=== PATIENT | male | born 1945 | race Caucasian/White ===

== ENCOUNTER → 2019-05-17 | Outpatient (CLI) | payer MEDICARE ==
[2019-05-17 12:35] LABS: BASOPHILS % (AUTO) 0.6 %; EOSINOPHILS # (AUTO) 0.1 10^3/uL (0.0-0.7); HGB - HEMOGLOBIN 14.3 g/dL (14.0-18.0); LYMPHOCYTES # (AUTO) 2.9 10^3/uL (1.5-3.5); MEAN CORPUSCULAR HEMOGLOBIN 30.8 pg (27.0-31.0); MEAN CORPUSCULAR VOLUME 96.1 fL (80.0-94.0); MEAN PLATELET VOLUME 9.6 fL (7.4-11.4); MONOCYTES # (AUTO) 0.7 10^3/uL (0.0-1.0); MONOCYTES % (AUTO) 10.1 %; PLT - PLATELET COUNT 242 10^3/uL (130-450); RED BLOOD COUNT 4.65 10^6/uL (4.70-6.10); RED CELL DISTRIBUTION WIDTH 13.4 % (12.0-15.0); WHITE BLOOD COUNT 6.7 x10^3/uL (4.8-10.8)
[2019-05-17 13:04] LABS: ALBUMIN 4.3 g/dL (3.2-5.5); ALBUMIN/GLOBULIN RATIO 1.2 (1.0-2.2); ALKALINE PHOSPHATASE 53 IU/L (42-121); ALT ALANINE AMINOTRANSFERASE 23 IU/L (10-60); AST ASPARTATE AMINOTRANSFERASE 28 IU/L (10-42); BILIRUBIN,TOTAL 0.4 mg/dL (0.2-1.0); BUN - BLOOD UREA NITROGEN 22 mg/dL (6-20); CALCIUM 9.3 mg/dL (8.5-10.3); CARBON DIOXIDE - CO2 26 mmol/L (21-32); CHLORIDE 107 mmol/L (101-111); CHOLESTEROL 197 mg/dL; CREATININE 0.9 mg/dL (0.6-1.2); GFR - MDRD 82 (>89); GLUCOSE 97 mg/dL (70-100); HDL CHOLESTEROL 33 mg/dL; LDL CHOLESTEROL,CALCULATED 144 mg/dL; LDL/HDL RATIO 4.4 (<3.6); SODIUM 141 mmol/L (135-145); TOTAL PROTEIN 7.9 g/dL (6.7-8.2); VLDL CHOLESTEROL 20 mg/dL
== END ==
LOC: LAB.WCP 08:00
PROVIDERS: ATTEND Family Medicine
DX: E78.5 Hyperlipidemia, unspecified (principal)
CPT/HCPCS: 36415; 80053; 80061; 83721; 85025

== ENCOUNTER 2019-05-31 08:00 | Outpatient (CLI) | payer MEDICARE | END 2019-05-31 08:01 | disposition home or self-care (01) | LOC: LAB.WCP 08:00 | PROVIDERS: ATTEND Family Medicine | DX: Z53.9 Procedure and treatment not carried out, unspecified reason (principal) ==

== ENCOUNTER 2019-11-03 11:22 | Emergency (ER) | payer MEDICARE ==
[2019-11-03] MEDS ORDERED: BUFFERED LIDOCAINE 10 ML SYRINGE SUBQ STA (12:20)
[2019-11-03] MEDS ORDERED: TETANUS/DIPHTHERIA/PERTUSSIS 0.5 ML SYRINGE IM ONE (12:20)
--- NOTE | 2019-11-03 12:32 | ED Physician Documentation ---
PD HPI UPPER EXT INJURY - Stated complaint Stated Complaint: RT FINGER LAC - Chief complaint Chief Complaint: Laceration - History obtained from History obtained from: Patient (Right-handed gentleman with unknown tetanus status was pushing down on the garbage at home and cut his right middle finger on a can lid. Happened about an hour ago.) Review of Systems Constitutional: denies: Fever, Chills Cardiac: reports: Reviewed and negative Respiratory: reports: Reviewed and negative PD PAST MEDICAL HISTORY - Past Medical History Past Medical History: Yes Cardiovascular: None Respiratory: None Neuro: None Endocrine/Autoimmune: None GI: None : None HEENT: None Psych: None Musculoskeletal: Osteoarthritis Derm: None - Past Surgical History Past Surgical History: Yes General: Colonoscopy Ortho: Hip replacement HEENT: Cataracts - Present Medications Home Medications: Ambulatory Orders Medication Instructions Recorded Confirmed Acetaminophen [Tylenol] 650 mg PO DAILY PRN 10/14/15 02/08/16 Oxycodone HCl/Acetaminophen 1 each PO Q6HR PRN #10 tablet 02/08/16 [Percocet 5-325 mg Tablet] - Allergies Allergies/Adverse Reactions: Allergies Allergy/AdvReac Type Severity Reaction Status Date / Time No Known Drug Allergies Allergy Verified 11/03/19 11:30 - Social History Does the pt smoke?: No Smoking Status: Never smoker Does the pt drink ETOH?: Yes Does the pt have substance abuse?: No - Immunizations Immunizations are current?: No Immunizations: TDAP >10years/unknown - POLST Patient has POLST: No PD ED PE NORMAL - Vitals Vital signs reviewed: Yes - General General: Alert and oriented X 3, No acute distress - Extremities Extremities: Other (On the pulp of the right index finger there is a 1.5 cm laceration without distal neurovascular compromise or nailbed involvement) - Neuro Neuro: Alert and oriented X 3, Normal speech Results - Vitals Vitals: Vital Signs - 24 hr 11/03/19 11:30 Temperature 36.7 C Heart Rate 87 Respiratory 14 Rate Blood Pressure 148/92 H O2 Saturation 95 Oxygen O2 Source Room air Procedures - Laceration (location) R 3rd finger Length in cm: 1.5 Wound type: Linear, Into subcut fat Neurovascular status: Sensory intact, Motor intact, Vascular intact Anesthesia: Lidocaine 1%, With bicarb Wound Preparation: Irrigated copiously NS Skin layer closure: Nylon, Interrupted, Size #-0 - enter number (5-0), Sutures - enter # (7) Other: Tetanus booster given Complexity: Simple Departure - Departure Disposition: 01 Home, Self Care Clinical Impression: Laceration Condition: Good Record reviewed to determine appropriate education?: Yes Instructions: ED Laceration Hand Comments: Come back for any signs of infection which would include: Redness, swelling, drainage, increased pain, or fevers. You can wash it soap and water. Keep it covered and moist with bacitracin ointment which is available over the counter; avoid neosporin. Follow-up with your physician in 14 days for suture removal.
[2019-11-03 13:04] VITALS: BP 147/89
== END 2019-11-03 13:09 | disposition home or self-care (01) ==
LOC: ED 11:22
DX: S61.212A Laceration without foreign body of right middle finger without damage to nail, initial encounter (principal); W26.8XXA Contact with other sharp object(s), not elsewhere classified, initial encounter; Y93.89 Activity, other specified; Y92.009 Unspecified place in unspecified non-institutional (private) residence as the place of occurrence of the external cause; Z23 Encounter for immunization
CPT/HCPCS: 12001; 90471

== ENCOUNTER 2020-09-03 07:19 | Outpatient (CLI) | payer MEDICARE ==
[2020-09-03 12:11] LABS: ALBUMIN 4.4 g/dL (3.2-5.5); ALBUMIN/GLOBULIN RATIO 1.3 (1.0-2.2); ALKALINE PHOSPHATASE 61 IU/L (42-121); ALT ALANINE AMINOTRANSFERASE 25 IU/L (10-60); AST ASPARTATE AMINOTRANSFERASE 30 IU/L (10-42); BILIRUBIN,TOTAL 0.8 mg/dL (0.2-1.0); BUN - BLOOD UREA NITROGEN 24 mg/dL (6-20); CALCIUM 9.3 mg/dL (8.5-10.3); CARBON DIOXIDE - CO2 27 mmol/L (21-32); CHLORIDE 102 mmol/L (101-111); CHOL/HDL RATIO 5.5 (<5.0); CHOLESTEROL 203 mg/dL; CREATININE 0.9 mg/dL (0.6-1.2); CRP - C-REACTIVE PROTEIN 1.9 mg/dL (0-1.0); GLUCOSE 96 mg/dL (70-100); HDL CHOLESTEROL 37 mg/dL; LDL CHOLESTEROL,CALCULATED 138 mg/dL; LDL/HDL RATIO 3.7 (<3.6); SODIUM 138 mmol/L (135-145); TOTAL PROTEIN 7.9 g/dL (6.7-8.2); URIC ACID 5.9 mg/dL (2.6-7.2); VLDL CHOLESTEROL 28 mg/dL
[2020-09-03 12:15] LABS: BASOPHILS % (AUTO) 0.4 %; EOSINOPHILS # (AUTO) 0.1 10^3/uL (0.0-0.7); HGB - HEMOGLOBIN 15.4 g/dL (14.0-18.0); LYMPHOCYTES # (AUTO) 3.2 10^3/uL (1.5-3.5); LYMPHOCYTES % (AUTO) 30.6 %; MEAN CORPUSCULAR HEMOGLOBIN 31.7 pg (27.0-31.0); MEAN CORPUSCULAR HGB CONC 32.6 g/dL (32.0-36.0); MEAN CORPUSCULAR VOLUME 97.1 fL (80.0-94.0); MEAN PLATELET VOLUME 9.5 fL (7.4-11.4); MONOCYTES # (AUTO) 0.9 10^3/uL (0.0-1.0); MONOCYTES % (AUTO) 8.7 %; NEUTROPHILS # (AUTO) 6.1 10^3/uL (1.5-6.6); NEUTROPHILS % (AUTO) 58.6 %; PLT - PLATELET COUNT 247 10^3/uL (130-450); RED BLOOD COUNT 4.86 10^6/uL (4.70-6.10); RED CELL DISTRIBUTION WIDTH 13.6 % (12.0-15.0); WHITE BLOOD COUNT 10.3 x10^3/uL (4.8-10.8)
[2020-09-03 14:11] LABS: RHEUMATOID FACTOR NEGATIVE (Negative)
== END 2020-09-03 07:20 | disposition home or self-care (01) ==
LOC: LAB.WCP 07:19
PROVIDERS: ATTEND Family Medicine
DX: E78.5 Hyperlipidemia, unspecified (principal); R03.0 Elevated blood-pressure reading, without diagnosis of hypertension; N52.9 Male erectile dysfunction, unspecified; M79.661 Pain in right lower leg; N20.0 Calculus of kidney; M06.4 Inflammatory polyarthropathy
CPT/HCPCS: 36415; 80053; 80061; 83721; 84443; 84550; 85025; 85651; 86140; 86430

== ENCOUNTER 2021-10-20 08:00 | Outpatient (CLI) | payer MEDICARE ==
[2021-10-20 13:52] LABS: ALBUMIN 4.5 g/dL (3.2-5.5); ALBUMIN/GLOBULIN RATIO 1.2 (1.0-2.2); ALKALINE PHOSPHATASE 61 IU/L (42-121); ALT ALANINE AMINOTRANSFERASE 22 IU/L (10-60); AST ASPARTATE AMINOTRANSFERASE 22 IU/L (10-42); BILIRUBIN,TOTAL 0.6 mg/dL (0.2-1.0); BUN - BLOOD UREA NITROGEN 31 mg/dL (6-20); CALCIUM 9.4 mg/dL (8.5-10.3); CARBON DIOXIDE - CO2 27 mmol/L (21-32); CHLORIDE 104 mmol/L (101-111); CHOL/HDL RATIO 5.8 (<5.0); CHOLESTEROL 216 mg/dL; CREATININE 0.9 mg/dL (0.6-1.2); GFR - MDRD 82 (>89); GLUCOSE 98 mg/dL (70-100); HDL CHOLESTEROL 37 mg/dL; LDL CHOLESTEROL,CALCULATED 147 mg/dL; POTASSIUM 4.6 mmol/L (3.5-5.0); SODIUM 141 mmol/L (135-145); TOTAL PROTEIN 8.2 g/dL (6.7-8.2); TRIGLYCERIDES 159 mg/dL; VLDL CHOLESTEROL 32 mg/dL
[2021-10-20 14:36] LABS: THYROID STIMULATING HORMONE 1.63 uIU/mL (0.34-5.60)
== END 2021-10-20 23:59 ==
LOC: LAB.WCP 08:00
PROVIDERS: ATTEND Internal Medicine
DX: I10 Essential (primary) hypertension (principal); E78.5 Hyperlipidemia, unspecified
CPT/HCPCS: 36415; 80053; 80061; 83721; 84443

== ENCOUNTER 2021-12-06 08:00 | Outpatient (CLI) | payer MEDICARE ==
[2021-12-06 14:24] LABS: FECAL OCCULT BLOOD (FIT) NEGATIVE (NEGATIVE)
== END 2021-12-06 23:59 | disposition home or self-care (01) ==
LOC: LAB.S 08:00
PROVIDERS: ATTEND Internal Medicine
DX: Z12.11 Encounter for screening for malignant neoplasm of colon (principal)
CPT/HCPCS: 82274

== ENCOUNTER 2022-09-09 12:44 | Outpatient (CLI) | payer MEDICARE | END 2022-09-09 12:45 | disposition EMS.NT | LOC: EMS 12:44 | DX: R42 Dizziness and giddiness (principal) ==

== ENCOUNTER 2022-09-12 08:49 | Outpatient (CLI) | payer MEDICARE ==
[2022-09-12 12:37] LABS: BASOPHILS # (AUTO) 0.1 10^3/uL (0.0-0.1); BASOPHILS % (AUTO) 0.6 %; EOSINOPHILS # (AUTO) 0.1 10^3/uL (0.0-0.7); EOSINOPHILS % (AUTO) 1.3 %; HCT - HEMATOCRIT 45.5 % (42.0-52.0); HGB - HEMOGLOBIN 14.6 g/dL (14.0-18.0); LYMPHOCYTES # (AUTO) 2.7 10^3/uL (1.5-3.5); LYMPHOCYTES % (AUTO) 34.7 %; MEAN CORPUSCULAR HEMOGLOBIN 30.5 pg (27.0-31.0); MEAN CORPUSCULAR HGB CONC 32.1 g/dL (32.0-36.0); MEAN CORPUSCULAR VOLUME 95.2 fL (80.0-94.0); MEAN PLATELET VOLUME 9.7 fL (7.4-11.4); MONOCYTES # (AUTO) 0.8 10^3/uL (0.0-1.0); NEUTROPHILS # (AUTO) 4.1 10^3/uL (1.5-6.6); PLT - PLATELET COUNT 244 10^3/uL (130-450); RED BLOOD COUNT 4.78 10^6/uL (4.70-6.10); RED CELL DISTRIBUTION WIDTH 13.4 % (12.0-15.0); WHITE BLOOD COUNT 7.8 x10^3/uL (4.8-10.8)
[2022-09-12 12:58] LABS: ALBUMIN 4.4 g/dL (3.2-5.5); ALBUMIN/GLOBULIN RATIO 1.3 (1.0-2.2); ALKALINE PHOSPHATASE 53 IU/L (42-121); ALT ALANINE AMINOTRANSFERASE 25 IU/L (10-60); AST ASPARTATE AMINOTRANSFERASE 25 IU/L (10-42); BILIRUBIN,TOTAL 0.5 mg/dL (0.2-1.0); BUN - BLOOD UREA NITROGEN 24 mg/dL (6-20); CALCIUM 9.5 mg/dL (8.5-10.3); CARBON DIOXIDE - CO2 27 mmol/L (21-32); CHLORIDE 106 mmol/L (101-111); CHOL/HDL RATIO 3.9 (<5.0); CHOLESTEROL 131 mg/dL; GFR - MDRD 72 (>89); GLUCOSE 94 mg/dL (70-100); HDL CHOLESTEROL 34 mg/dL; LDL CHOLESTEROL,CALCULATED 74 mg/dL; LDL/HDL RATIO 2.2 (<3.6); POTASSIUM 4.6 mmol/L (3.5-5.0); SODIUM 140 mmol/L (135-145); TOTAL PROTEIN 7.9 g/dL (6.7-8.2); TRIGLYCERIDES 113 mg/dL; VLDL CHOLESTEROL 23 mg/dL
== END 2022-09-12 08:50 | disposition home or self-care (01) ==
LOC: LAB.N 08:49
PROVIDERS: ATTEND Physician Assistant
DX: E78.5 Hyperlipidemia, unspecified (principal); R42 Dizziness and giddiness
CPT/HCPCS: 36415; 80053; 80061; 83721; 85025

== ENCOUNTER 2022-09-12 12:01 | Outpatient (CLI) | payer MEDICARE ==
--- NOTE | 2022-09-12 13:49 | CT Report ---
PROCEDURE: HEAD WO INDICATIONS: CONFUSION TECHNIQUE: Noncontrast 4.5 mm thick angled axial sections acquired from the foramen magnum to the vertex. For r adiation dose reduction, the following was used: automated exposure control, adjustment of mA and/or kV according to patient size. COMPARISON: None. FINDINGS: Image quality: There is streak artifact seen through the skull base. CSF spaces: Basal cisterns are patent. No extra-axial fluid collections. Ventricles are normal in size and shape. Brain: No midline shift. No intracranial masses or hemorrhage. Connelly-white matter interface is norm al. Skull and face: Calvarium and visualized facial bones are intact, without suspicious lesions. Sinuses: Visualized sinuses and mastoids are clear. IMPRESSION: Normal noncontrast head CT for age, without a cause of confusion identified. Reviewed by: Erick Art MD on 09/12/2022 12:47 PM DEON Approved by: Erick Art MD on 09/12/2022 12:47 PM AKBHAVANI Station ID: [id number]
== END 2022-09-12 12:02 | disposition home or self-care (01) ==
LOC: DI 12:01
PROVIDERS: ATTEND Physician Assistant
DX: R41.0 Disorientation, unspecified (principal); R42 Dizziness and giddiness; E78.5 Hyperlipidemia, unspecified
CPT/HCPCS: 36415; 80053; 80061; 83721; 85025

== ENCOUNTER 2022-10-25 11:34 | Emergency (ER) | payer MEDICARE ==
[2022-10-25 11:49] VITALS: BP 171/92
[2022-10-25] MEDS ORDERED: LIDOCAINE-EPINEPH-TETRACAINE 3 ML SYRINGE TOP STA (11:59)
--- NOTE | 2022-10-25 12:06 | ED Physician Documentation ---
History of Present Illness - Stated complaint Stated Complaint: HEAD INJURY/OBJECT VS FACE - Chief complaint Chief Complaint: Laceration - History obtained from History obtained from: Patient - History of Present Illness Timing: Today Pain level max: 3 Pain level now: 3 - Additonal information Additional information: Patient is a 77-year-old male who presents to the emergency department after being struck in the face accidentally by a piece of plywood causing a laceration at the left eye. Tetanus up-to-date. No headache. No vision changes. No neck or back pain. No loss of consciousness. Nothing makes it better or worse. Review of Systems Constitutional: denies: Fever, Chills Throat: denies: Sore throat GI: denies: Vomiting, Diarrhea Skin: denies: Rash Musculoskeletal: denies: Neck pain, Back pain Neurologic: denies: Confused, Headache, LOC PD PAST MEDICAL HISTORY - Past Medical History Cardiovascular: None Respiratory: None Neuro: None Endocrine/Autoimmune: None GI: None : None HEENT: None Psych: None Musculoskeletal: Osteoarthritis Derm: None - Past Surgical History Past Surgical History: Yes General: Colonoscopy Ortho: Hip replacement HEENT: Cataracts - Present Medications Home Medications: Ambulatory Orders Medication Instructions Recorded Confirmed Losartan Potassium 25 mg PO DAILY PM 10/25/22 10/25/22 Rosuvastatin Calcium [Crestor] 10 mg PO DAILY PM 10/25/22 10/25/22 - Allergies Allergies/Adverse Reactions: Allergies Allergy/AdvReac Type Severity Reaction Status Date / Time acetaminophen [From Vicodin] Allergy Unknown Verified 10/25/22 11:50 hydrocodone [From Vicodin] Allergy Unknown Verified 10/25/22 11:50 - Social History Does the pt smoke?: No Smoking Status: Never smoker Does the pt drink ETOH?: Yes Does the pt have substance abuse?: No - Immunizations Immunizations are current?: No Immunizations: TDAP >10years/unknown - POLST Patient has POLST: No PD ED PE NORMAL - Vitals Vital signs reviewed: Yes - General General: Alert and oriented X 3, No acute distress - HEENT HEENT: PERRL, EOMI (Laceration repair with Dermabond. Tolerated well. No indication for CT scan of the head, neck or face. No bony tenderness over the neck. No scalp hematomas or palpable skull fractures. GCS 15. Patient counseled regarding signs and symptoms for which I believe and urgent re- evaluation would be ), Moist mucous membranes, Pharynx benign, Dentition benign - Neck Neck: Supple, no meningeal sign, No bony TTP - Respiratory Respiratory: No respiratory distress - Derm Derm: Warm and dry - Neuro Neuro: Alert and oriented X 3 - Psych Psych: Normal mood, Normal affect - Free text exam Free text exam: Laceration just lateral to the left eye, approximately 3 cm in length. Well approximated. No active bleeding Results - Vitals Vitals: Vital Signs - 24 hr 10/25/22 11:45 Temperature 36.7 C Heart Rate 100 Respiratory 16 Rate Blood Pressure 171/92 H O2 Saturation 98 Oxygen O2 Source Room air Procedures - Laceration (location) Left periorbital Length in cm: 3 Wound type: Linear, Superficial Neurovascular status: Sensory intact, Motor intact, Vascular intact Anesthesia: LET Wound preparation: Irrigated copiously NS, Wound explored, To the base Skin layer closure: Dermabond Other: Patient tolerated well, No complications, Neurovascular intact, Tetanus UTD PD MEDICAL DECISION MAKING - ED course Complexity details: reviewed results, re-evaluated patient, considered differential, d/w patient ED course: Laceration repair with Dermabond. Tolerated well. No indication for CT scan of the head, neck or face. No bony tenderness over the neck. No scalp hematomas or palpable skull fractures. GCS 15. Patient counseled regarding signs and symptoms for which I believe and urgent re-evaluation would be necessary. Patient with good understanding of and agreement to plan and is comfortable going home at this time This document was made in part using voice recognition software. While efforts are made to proofread this document, sound alike and grammatical errors may occur. Departure - Departure Disposition: 01 Home, Self Care Clinical Impression: Facial laceration Qualifiers: Encounter type: initial encounter Qualified Code(s): S01.81XA - Laceration without foreign body of other part of head, initial encounter Condition: Good Instructions: ED Laceration Facial Skin Glue Follow-Up: your,doctor as needed [Other] Comments: Please leave the glue in place. Do not apply ointment as this may dissolve the glue. Please follow-up with your doctor for further care. Return if you worsen. Discharge Date/Time: 10/25/22 12:33
== END 2022-10-25 12:33 | disposition home or self-care (01) ==
LOC: ED 11:34
DX: S01.112A Laceration without foreign body of left eyelid and periocular area, initial encounter (principal); W22.8XXA Striking against or struck by other objects, initial encounter
CPT/HCPCS: 12013; 99281

== ENCOUNTER 2022-12-01 08:00 | Outpatient (CLI) | payer MEDICARE ==
[2022-12-01 18:37] LABS: BILIRUBIN,URINE NEGATIVE (NEGATIVE); GLUCOSE, URINE (UA) NEGATIVE (NEGATIVE); KETONES,URINE (UA) NEGATIVE (NEGATIVE); LEUKOCYTE ESTERASE, URINE NEGATIVE (NEGATIVE); NITRITE,URINE NEGATIVE (NEGATIVE); OCCULT BLOOD,URINE LARGE (NEGATIVE); PROTEIN,URINE NEGATIVE (NEGATIVE); UROBILINOGEN,URINE 0.2 (NORMAL) E.U./dL (NORMAL)
[2022-12-01 18:42] LABS: CLARITY,URINE HAZY (CLEAR)
[2022-12-01 18:59] LABS: BACTERIA,URINE None Seen /HPF (None Seen); RBC,URINE TNTC /HPF (0-5); SQUAMOUS EPITHELIAL CELL,UR NONE SEEN (<= Few); WBC,URINE 0-3 /HPF (0-3)
== END 2022-12-01 23:59 | disposition home or self-care (01) ==
LOC: LAB.WCP 08:00
PROVIDERS: ATTEND Physician Assistant
DX: R31.0 Gross hematuria (principal); R82.998 Other abnormal findings in urine
CPT/HCPCS: 81001; 87086

== ENCOUNTER 2022-12-07 09:19 | Outpatient (CLI) | payer MEDICARE ==
--- NOTE | 2022-12-07 15:18 | CT Report ---
PROCEDURE: ABDOMEN/PELVIS WO INDICATIONS: GROSS HEMATURIA TECHNIQUE: Noncontrast 5 mm thick sections acquired from the diaphragms to the symphysis. 5 mm coronal and sagi ttal reformats were then performed. For radiation dose reduction, the following was used: automated exposure control, adjustment of mA and/or kV according to patient size. COMPARISON: CT IVP dated 04/01/2016. FINDINGS: Image quality: Excellent. ABDOMEN: Lung bases: Lung bases are clear. Heart size is normal. Solid organs: Liver and spleen are normal in size. Gallbladder is unremarkable. Pancreas is normal in contours. No adrenal nodules. 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 There is now moderate right hydronephrosis. Th e right ureter proximally is distended and is of mildly increased density. The length of abnormally d ilated ureter measures approximately 3.3 cm. It is filled with this mildly high density material, whi ch may potentially represent clot, or potentially a ureteral mass. More inferiorly, the ureter has a normal caliber until it enters into the bladder. The left kidney and ureter are unremarkable without stones or hydronephrosis. Peritoneum and bowel: Unenhanced bowel loops demonstrate normal wall thickness and caliber. Extensi ve sigmoid diverticulosis and prominent diffuse diverticulosis without evidence of diverticulitis. No free fluid or air. Nodes and vessels: No retroperitoneal or mesenteric adenopathy by size criteria. Aorta and inferior vena cava are normal in caliber. Miscellaneous: Small fat-containing periumbilical hernia. PELVIS: Genitourinary: Bladder wall thickness is normal. Miscellaneous: No inguinal hernias or adenopathy. Bones: No suspicious bony lesions. No vertebral body compression fractures. Total left hip arthropl asty. IMPRESSION: 1. Moderate right hydronephrosis has developed. The superior aspect of the right ureter, measuring ap proximately 3.3 cm, is distended, and contains relatively high density. This may be distention by jt t or may potentially represent the presence of a ureteral carcinoma. 2. Extensive diverticulosis without evidence of diverticulitis. Comment: CT IVP may be helpful. Patient may benefit from urological consultation, and may require ret rograde pyelography. Reviewed by: Josh Benavides MD on 12/07/2022 3:17 PM PST Approved by: Jsoh Benavides MD on 12/07/2022 3:17 PM PST Station ID: [id number]
== END 2022-12-07 09:20 | disposition home or self-care (01) ==
LOC: DI 09:19
PROVIDERS: ATTEND Family Medicine
DX: N13.30 Unspecified hydronephrosis (principal); K57.30 Diverticulosis of large intestine without perforation or abscess without bleeding

== ENCOUNTER 2023-03-04 00:59 | Emergency (ER) | payer MEDICARE ==
--- OUTSIDE RECORDS SUMMARY | 2023-03-04 01:08 | EXTERNAL MEDICAL SUMMARY RPT | Continuity of Care Document ---
:1945 Author Organization [facility] Address [address] [place] [address] Phone Allergies No information. Encounters No information. Functional Status No information. Immunizations No information. Medications No information. Problems date description facility 2023-01-16 10:23 Unspecified hydronephrosis [facility] 2023-01-16 10:23 Gross hematuria [facility] 2023-01-16 10:23 Abnormal radiologic findings on [facility] imaging of renal 2023-01-16 10:24 Unspecified hydronephrosis [facility] 2023-01-16 10:24 [facility] 2023-01-16 10:24 Abnormal radiologic findings on [facility] imaging of renal Procedures No information. Results/Labs test date author facility value unit interpret ation Result panel 1 (unknown) (no (unknown) (unknown) (no value) (units (unk nown) date) unknown) (unknown) (no (unknown) (unknown) 01/16/23 (units (unkno wn) date) unknown) (unknown) (no (unknown) (unknown) [address] [place] [address] (units (unknown) date) unknown) (unknown) (no (unknown) (unknown) 2.3 cm (). (units (unknown) date) Findings represent unknown) malignancy until proven otherwise. No (unknown) (no (unknown) (unknown) 2.9 x 2.3 cm (units (u nknown) date) (). unknown) (unknown) (no (unknown) (unknown) 2.9 x (units (unkno wn) date) unknown) (unknown) (no (unknown) (unknown) Abdominal wall: (units (unknown) date) No ventral unknown) hernias. (unknown) (no (unknown) (unknown) Accession Number: (units (unknown) date) [id number] unknown) (unknown) (no (unknown) (unknown) Age/Sex: 77 / M (units (unknown) date) Date of Service: unknown) (unknown) (no (unknown) (unknown) [place], [place] (units ( unknown) date) [id number] unknown) (unknown) (no (unknown) (unknown) Ankylosis (units (unkn own) date) unknown) (unknown) (no (unknown) (unknown) Approved by: Luca (units (unknown) date) Raheem Emmanuel on unknown) 01/16/2023 at 15:25 (unknown) (no (unknown) (unknown) Bones: No (units (unkn own) date) suspicious bony unknown) lesions. No vertebral body compression fractures. (unknown) (no (unknown) (unknown) COMPARISON: None. (units (unknown) date) unknown) (unknown) (no (unknown) (unknown) CT Scan Report (units (unknown) date) unknown) (unknown) (no (unknown) (unknown) : 1945 (units (unknown) date) Acct:[id number] unknown) (unknown) (no (unknown) (unknown) Dictated by: Luca (units (unknown) date) Raheem Emmanuel on unknown) 01/16/2023 at 15:19 (unknown) (no (unknown) (unknown) FINDINGS: (units (unkn own) date) unknown) (unknown) (no (unknown) (unknown) IMPRESSION: (units (un known) date) unknown) (unknown) (no (unknown) (unknown) INDICATIONS: (units (u nknown) date) Gross hematuria unknown) (unknown) (no (unknown) (unknown) Ill-defined (units (unk nown) date) filling defect unknown) within the proximal right ureter/extrarenal pelvis on (unknown) (no (unknown) (unknown) Image quality: (units (unknown) date) Excellent. unknown) (unknown) (no (unknown) (unknown) [facility] (units (unknown) date) unknown) (unknown) (no (unknown) (unknown) Loc: CT (units (unkno wn) date) unknown) (unknown) (no (unknown) (unknown) Lung bases: Lung (units (unknown) date) bases are clear. unknown) Heart size is normal. (unknown) (no (unknown) (unknown) [id number] (units (unk nown) date) unknown) (unknown) (no (unknown) (unknown) Nodes and (units (unkn own) date) vessels: No unknown) retroperitoneal or mesenteric adenopathy by size (unknown) (no (unknown) (unknown) Optional 5 mm (units ( unknown) date) thick noncontrast unknown) images acquired from the diaphragm to the (unknown) (no (unknown) (unknown) Ordering (units (unkno wn) date) Provider: unknown) Rona Handy P.A-C (unknown) (no (unknown) (unknown) Other solid (units (un known) date) organs: Liver is unknown) normal in size and enhancement. Gallbladder is (unknown) (no (unknown) (unknown) PROCEDURE: CT IVP (units (unknown) date) A/P W/WO unknown) (unknown) (no (unknown) (unknown) Patient: (units (unkno wn) date) Fabio Grant unknown) MR#: (unknown) (no (unknown) (unknown) Pelvis: No (units (unk nown) date) pathologic free unknown) pelvic fluid. No inguinal hernias or adenopathy. (unknown) (no (unknown) (unknown) Peritoneum and (units (unknown) date) bowel: Bowel loops unknown) demonstrate normal wall thickness and (unknown) (no (unknown) (unknown) Procedure: CT IVP (units (unknown) date) A/P W/WO unknown) (unknown) (no (unknown) (unknown) Signed (units (unkno wn) date) unknown) (unknown) (no (unknown) (unknown) Spleen is (units (unkn own) date) unknown) (unknown) (no (unknown) (unknown) TECHNIQUE: (units (unk nown) date) unknown) (unknown) (no (unknown) (unknown) Urinary system: (units (unknown) date) Ill-defined unknown) filling defect within the proximal right (unknown) (no (unknown) (unknown) acquired from (units ( unknown) date) unknown) (unknown) (no (unknown) (unknown) and inferior vena (units (unknown) date) cava are normal in unknown) size. (unknown) (no (unknown) (unknown) and/or (units (unkno wn) date) unknown) (unknown) (no (unknown) (unknown) appreciable (units (un known) date) contrast excretion unknown) of the right kidney. This measures approximately (unknown) (no (unknown) (unknown) approximately (units ( unknown) date) unknown) (unknown) (no (unknown) (unknown) caliber. No (units (un known) date) unknown) (unknown) (no (unknown) (unknown) coronal and (units (un known) date) unknown) (unknown) (no (unknown) (unknown) criteria. Aorta (units (unknown) date) unknown) (unknown) (no (unknown) (unknown) evidence (units (unkno wn) date) unknown) (unknown) (no (unknown) (unknown) free fluid or (units ( unknown) date) air. Colonic unknown) diverticulosis without evidence of diverticulitis. (unknown) (no (unknown) (unknown) kV according to (units (unknown) date) patient size. unknown) (unknown) (no (unknown) (unknown) metastatic (units (unk nown) date) disease. unknown) (unknown) (no (unknown) (unknown) nephrogram, (units (un known) date) unknown) (unknown) (no (unknown) (unknown) normal in size (units (unknown) date) and enhancement. unknown) No adrenal nodules. (unknown) (no (unknown) (unknown) of the sacroiliac (units (unknown) date) joints unknown) (unknown) (no (unknown) (unknown) pelvis on the (units ( unknown) date) right, resulting unknown) in moderate upstream hydroureter and delayed (unknown) (no (unknown) (unknown) pubis. After the (units (unknown) date) administration of unknown) intravenous contrast, 5 mm thick images (unknown) (no (unknown) (unknown) radiation dose (units (unknown) date) unknown) (unknown) (no (unknown) (unknown) reduction, the (units (unknown) date) following was unknown) used: automated exposure control, adjustment of mA (unknown) (no (unknown) (unknown) right, resulting (units (unknown) date) in moderate unknown) upstream hydroureter and delayed nephrogram, (unknown) (no (unknown) (unknown) sagittal (units (unkno wn) date) reformats were unknown) then performed of the kidneys and ureters. For (unknown) (no (unknown) (unknown) symphysis (units (unkn own) date) unknown) (unknown) (no (unknown) (unknown) the diaphragm to (units (unknown) date) the symphysis unknown) pubis after a 10-minute delay. 2 mm thick (unknown) (no (unknown) (unknown) the (units (unkno wn) date) unknown) (unknown) (no (unknown) (unknown) unremarkable . (units (unknown) date) Biliary system is unknown) non dilated. Pancreas enhances normally. (unknown) (no (unknown) (unknown) ureter/extrarenal (units (unknown) date) unknown) (unknown) (no (unknown) (unknown) without (units (unkno wn) date) appreciable unknown) contrast excretion of the right kidney. This measures (unknown) (no (unknown) (unknown) without (units (unkno wn) date) unknown) Result panel 2 (unknown) (no date) (unknown) (unknown) 1.55 mg/dl (unkn own) (unknown) (no date) (unknown) (unknown) 45 ml/min (unkn own) (unknown) (no date) (unknown) (unknown) 45 ml/min (unkn own) Social History No information. Vital Signs No information.
--- NOTE | 2023-03-04 01:15 | ED Physician Documentation ---
PD HPI MALE - Stated complaint Stated Complaint: MALE - Chief complaint Chief Complaint: Abd Pain - History obtained from History obtained from: Patient - Additional information Additional information: HPI from patient. Patient complains of urinary frequency, urgency, hematuria since 10 PM. He feels the urge to urinate yet only very small amounts are produced when he tries to urinate. Patient underwent right kidney biopsy yesterday with cystoscopy. He does not know the results of biopsy yet. Review of Systems Constitutional: denies: Fever, Chills, Sweats GI: denies: Abdominal Pain (suprapubic fullness as if bladder is full but no abdominal pain per se), Nausea, Vomiting : reports: Dysuria, Frequency, Unable to Void, Hematuria PD PAST MEDICAL HISTORY - Past Medical History Cardiovascular: None Respiratory: None Neuro: None Endocrine/Autoimmune: None GI: None : None HEENT: None Psych: None Musculoskeletal: Osteoarthritis Derm: None - Past Surgical History Past Surgical History: Yes General: Colonoscopy Ortho: Hip replacement HEENT: Cataracts - Present Medications Home Medications: Ambulatory Orders Medication Instructions Recorded Confirmed Losartan Potassium 25 mg PO DAILY PM 10/25/22 03/04/23 Rosuvastatin Calcium [Crestor] 10 mg PO DAILY PM 10/25/22 03/04/23 Aspirin [Neosho Aspirin] 81 mg PO DAILY 03/04/23 03/04/23 - Allergies Allergies/Adverse Reactions: Allergies Allergy/AdvReac Type Severity Reaction Status Date / Time acetaminophen [From Vicodin] Allergy Unknown Verified 03/04/23 01:16 hydrocodone [From Vicodin] Allergy Unknown Verified 03/04/23 01:16 - Social History Does the pt smoke?: No Smoking Status: Never smoker Does the pt drink ETOH?: Yes Does the pt have substance abuse?: No - Immunizations Immunizations are current?: No Immunizations: TDAP >10years/unknown - POLST Patient has POLST: No PD ED PE NORMAL - Vitals Vital signs reviewed: Yes - General General: Alert and oriented X 3, No acute distress, Well developed/nourished - Abdomen Abdomen: Soft, Other (suprapubic fullness and TTP) - Back Back: No CVA TTP Results - Vitals Vitals: Vital Signs - 24 hr 03/04/23 03/04/23 03/04/23 01:05 01:32 02:13 Temperature 36.6 C 36.6 C Heart Rate 129 H 108 H 100 Respiratory 18 19 16 Rate Blood Pressure 182/105 H 160/100 H 155/93 H O2 Saturation 95 96 94 Oxygen O2 Source Room air - Labs Labs: Laboratory Tests 03/04/23 01:50 Urine Color RED/BLOODY Urine Clarity BLOODY Urine pH 6.0 Ur Specific [place] 1.015 Urine Protein 100 H Urine Glucose (UA) NEGATIVE Urine Ketones NEGATIVE Urine Occult Blood LARGE H Urine Nitrite NEGATIVE Urine Bilirubin NEGATIVE Urine Urobilinogen 0.2 (NORMAL) Ur Leukocyte Esterase NEGATIVE Urine RBC TNTC H Urine WBC 0-3 Ur Squamous Epith Cells NONE SEEN Urine Bacteria Rare Ur Microscopic Review INDICATED Urine Culture Comments NOT INDICATED PD Medical Decision Making - ED course Complexity details: reviewed results, re-evaluated patient, considered differential, d/w patient ED course: ED RN performed bedside bladder scan with results of greater than 530 cc. ED RN then placed a López catheter without difficulty or resistance. Initially, a very small amount of urine was expressed into the López tubing; ED RN estimates it was approximately 5 to 10 cc, with large blood clot noted. ED RN then irrigated the López catheter and there was an immediate, brisk return of over 650 cc of grossly bloody urine without any obvious clots. The initial urine output was opaque but, as more urine was expressed into the collecting system of the López bag, it was noted to become increasingly translucent in the López catheter tubing. The urine output was associated with improvement, and then complete resolution of patient's discomfort. I discussed the case with the on-call urologist for patient's group at [facility]; Dr. Ayala recommends discharging the patient home without any medication including antibiotic, recommends keeping the catheter in. Dr. Ayala says that the patient should be seen in follow-up this coming Monday in the urology office for removal of the catheter. Dr. Ayala asks that the urine be sent for culture, and I thus entered an order for urine culture. I relayed the information from this conversation to the patient and he is comfortable with, and understands, this plan. Return precautions discussed. Departure - Departure Disposition: Home, Self Care Clinical Impression: Urinary retention Condition: Good Instructions: ED Catheter Care López, ED Retention Urinary Male Comments: I spoke with the on-call urologist for your group (Dr. Ayala was on-call). He recommends that we discharge you with a López catheter still in place. Contact the urology group on Monday when the office opens to arrange for immediate appointment. Dr. Ayala says that you should be reevaluated in the office on Monday when they will likely take the catheter back out. Discharge Date/Time: 03/04/23 02:45
[2023-03-04 02:03] LABS: BILIRUBIN,URINE NEGATIVE (NEGATIVE); GLUCOSE, URINE (UA) NEGATIVE (NEGATIVE); KETONES,URINE (UA) NEGATIVE (NEGATIVE); LEUKOCYTE ESTERASE, URINE NEGATIVE (NEGATIVE); NITRITE,URINE NEGATIVE (NEGATIVE); OCCULT BLOOD,URINE LARGE (NEGATIVE); PROTEIN,URINE 100 mg/dL (NEGATIVE); UROBILINOGEN,URINE 0.2 (NORMAL) E.U./dL (NORMAL)
[2023-03-04 02:07] LABS: BACTERIA,URINE Rare /HPF (None Seen); CLARITY,URINE BLOODY (CLEAR); RBC,URINE TNTC /HPF (0-5); SQUAMOUS EPITHELIAL CELL,UR NONE SEEN (<= Few); WBC,URINE 0-3 /HPF (0-3)
[2023-03-04 02:14] VITALS: BP 155/93
== END 2023-03-04 02:45 | disposition home or self-care (01) ==
LOC: ED 00:59
DX: R33.9 Retention of urine, unspecified (principal); Z79.82 Long term (current) use of aspirin; Z79.899 Other long term (current) drug therapy
CPT/HCPCS: 51702; 51798; 81001; 81003; 87086; 99283; 99284

== ENCOUNTER 2023-03-06 16:44 | Emergency (ER) | payer MEDICARE ==
[2023-03-06 16:53] VITALS: BP 142/76
--- NOTE | 2023-03-06 17:18 | ED Physician Documentation ---
History of Present Illness - Stated complaint Stated Complaint: CATHETER NOT DRAINING, PX - Chief complaint Chief Complaint: Abd Pain - History obtained from History obtained from: Patient - Additonal information Additional information: He had a kidney biopsy a few days ago and then was here 2 nights ago with urinary retention related to clots. Subsequently his urine culture was negative, but his catheter stopped draining a few hours ago. He is here with his who is a nurse. PD PAST MEDICAL HISTORY - Past Medical History Cardiovascular: None Respiratory: None Neuro: None Endocrine/Autoimmune: None GI: None : None HEENT: None Psych: None Musculoskeletal: Osteoarthritis Derm: None - Past Surgical History Past Surgical History: Yes General: Colonoscopy Ortho: Hip replacement HEENT: Cataracts - Present Medications Home Medications: Ambulatory Orders Medication Instructions Recorded Confirmed Losartan Potassium 25 mg PO DAILY PM 10/25/22 03/04/23 Rosuvastatin Calcium [Crestor] 10 mg PO DAILY PM 10/25/22 03/04/23 Aspirin [Keith Aspirin] 81 mg PO DAILY 03/04/23 03/04/23 - Allergies Allergies/Adverse Reactions: Allergies Allergy/AdvReac Type Severity Reaction Status Date / Time acetaminophen [From Vicodin] Allergy Unknown Verified 03/06/23 16:50 hydrocodone [From Vicodin] Allergy Unknown Verified 03/06/23 16:50 - Social History Does the pt smoke?: No Smoking Status: Never smoker Does the pt drink ETOH?: Yes Does the pt have substance abuse?: No - Immunizations Immunizations are current?: No Immunizations: TDAP >10years/unknown - POLST Patient has POLST: No PD ED PE NORMAL - Vitals Vital signs reviewed: Yes - General General: Alert and oriented X 3, No acute distress - Abdomen Abdomen: Non tender - Neuro Neuro: Alert and oriented X 3, Normal speech - Psych Psych: Normal mood, Normal affect Results - Vitals Vitals: Vital Signs - 24 hr 03/06/23 16:50 Temperature 36.5 C Heart Rate 87 Respiratory 18 Rate Blood Pressure 142/76 H O2 Saturation 96 Oxygen O2 Source Room air PD Medical Decision Making - ED course ED course: His López catheter was irrigated with some clots removed and then was fully flowing freely. Departure - Departure Disposition: 01 Home, Self Care Clinical Impression: Urinary retention Condition: Good Record reviewed to determine appropriate education?: Yes Instructions: ED Catheter Care López Comments: Follow-up with urologist for voiding trial as scheduled. Return for worsening symptoms.
--- OUTSIDE RECORDS SUMMARY | 2023-03-06 17:22 | EXTERNAL MEDICAL SUMMARY RPT | Continuity of Care Document ---
:1945 Author Organization [facility] Address [address] [place] [address] Phone Allergies No information. Encounters No information. Functional Status No information. Immunizations No information. Medications No information. Problems date description facility 2023-01-16 10:23 Unspecified hydronephrosis [facility] 2023-01-16 10:23 Gross hematuria [facility] 2023-01-16 10:23 Abnormal radiologic findings on [facility] imaging of renal 2023-01-16 10:24 Unspecified hydronephrosis [facility] 2023-01-16 10:24 [facility] 2023-01-16 10:24 Abnormal radiologic findings on [facility] imaging of renal Procedures No information. Results/Labs test date author facility value unit interpret ation Result panel 1 (unknown) (no (unknown) (unknown) (no value) (units (unk nown) date) unknown) (unknown) (no (unknown) (unknown) 01/16/23 (units (unkno wn) date) unknown) (unknown) (no (unknown) (unknown) [address] [place] [address] (units (unknown) date) unknown) (unknown) (no (unknown) [...] (unknown) (unknown) Accession Number: (units (unknown) date) [id number] unknown) (unknown) (no (unknown) (unknown) Age/Sex: 77 / M (units (unknown) date) Date of Service: unknown) (unknown) (no (unknown) (unknown) [place], [place] (units ( unknown) date) [id number] unknown) (unknown) (no (unknown) (unknown) Ankylosis (units [...] (unknown) (unknown) : 1945 (units (unknown) date) Acct:[id number] unknown) (unknown) (no (unknown) (unknown) Dictated by: [...] date) Excellent. unknown) (unknown) (no (unknown) (unknown) [facility] (units (unknown) date) unknown) (unknown) (no (unknown) (unknown) Loc: [place] (units (unkno wn) date) unknown) (unknown) (no (unknown) (unknown) Lung bases: Lung (units (unknown) date) bases are clear. unknown) Heart size is normal. (unknown) (no (unknown) (unknown) [id number] (units (unk nown) date) unknown) (unknown) (no [...]
== END 2023-03-06 17:29 | disposition home or self-care (01) ==
LOC: ED 16:44
DX: R33.9 Retention of urine, unspecified (principal); T83.098A Other mechanical complication of other urinary catheter, initial encounter; Z79.82 Long term (current) use of aspirin; Z79.899 Other long term (current) drug therapy
CPT/HCPCS: 99283

== ENCOUNTER 2023-05-11 08:00 | Outpatient (CLI) | payer MEDICARE ==
[2023-05-11 11:52] LABS: BILIRUBIN,URINE NEGATIVE (NEGATIVE); GLUCOSE, URINE (UA) NEGATIVE (NEGATIVE); KETONES,URINE (UA) NEGATIVE (NEGATIVE); LEUKOCYTE ESTERASE, URINE NEGATIVE (NEGATIVE); NITRITE,URINE NEGATIVE (NEGATIVE); OCCULT BLOOD,URINE SMALL (NEGATIVE); PH,URINE 5.5 PH (5.0-7.5); PROTEIN,URINE NEGATIVE (NEGATIVE); UROBILINOGEN,URINE 0.2 (NORMAL) E.U./dL (NORMAL)
[2023-05-11 12:06] LABS: CLARITY,URINE CLEAR (CLEAR)
[2023-05-11 12:13] LABS: BACTERIA,URINE None Seen /HPF (None Seen); RBC,URINE 0-5 /HPF (0-5); SQUAMOUS EPITHELIAL CELL,UR RARE Squamous (<= Few); WBC,URINE 0-3 /HPF (0-3)
== END 2023-05-11 23:59 | disposition home or self-care (01) ==
LOC: LAB.N 08:00
PROVIDERS: ATTEND Physician Assistant
DX: R31.0 Gross hematuria (principal)
CPT/HCPCS: 81001; 81003; 87086

== ENCOUNTER 2023-05-11 10:26 | Outpatient (CLI) | payer MEDICARE | END 2023-05-11 10:27 | disposition home or self-care (01) | LOC: LAB.N 10:26 | PROVIDERS: ATTEND Physician Assistant | DX: Z53.9 Procedure and treatment not carried out, unspecified reason (principal) ==

== ENCOUNTER 2023-12-18 08:03 | Outpatient (CLI) | payer MEDICARE ==
[2023-12-18 11:59] LABS: BASOPHILS % (AUTO) 0.5 %; EOSINOPHILS # (AUTO) 0.1 10^3/uL (0.0-0.7); EOSINOPHILS % (AUTO) 0.8 %; HCT - HEMATOCRIT 34.4 % (42.0-52.0); HGB - HEMOGLOBIN 10.7 g/dL (14.0-18.0); LYMPHOCYTES # (AUTO) 4.2 10^3/uL (1.5-3.5); LYMPHOCYTES % (AUTO) 48.8 %; MEAN CORPUSCULAR HEMOGLOBIN 30.2 pg (27.0-31.0); MEAN CORPUSCULAR HGB CONC 31.1 g/dL (32.0-36.0); MEAN CORPUSCULAR VOLUME 97.2 fL (80.0-94.0); MONOCYTES # (AUTO) 0.8 10^3/uL (0.0-1.0); MONOCYTES % (AUTO) 9.5 %; NEUTROPHILS # (AUTO) 3.4 10^3/uL (1.5-6.6); NEUTROPHILS % (AUTO) 40.2 %; PLT - PLATELET COUNT 188 10^3/uL (130-450); RED BLOOD COUNT 3.54 10^6/uL (4.70-6.10); RED CELL DISTRIBUTION WIDTH 14.6 % (12.0-15.0); WHITE BLOOD COUNT 8.5 x10^3/uL (4.8-10.8)
[2023-12-18 12:22] LABS: ALBUMIN 4.3 g/dL (3.2-5.5); ALBUMIN/GLOBULIN RATIO 1.5 (1.0-2.2); ALKALINE PHOSPHATASE 62 IU/L (42-121); ALT ALANINE AMINOTRANSFERASE 12 IU/L (10-60); AST ASPARTATE AMINOTRANSFERASE 17 IU/L (10-42); BILIRUBIN,TOTAL 0.3 mg/dL (0.2-1.0); BUN - BLOOD UREA NITROGEN 24 mg/dL (6-20); CALCIUM 9.3 mg/dL (8.5-10.3); CARBON DIOXIDE - CO2 27 mmol/L (21-32); CHLORIDE 108 mmol/L (101-111); CHOL/HDL RATIO 3.2 (<5.0); CHOLESTEROL 114 mg/dL; CREATININE 1.3 mg/dL (0.6-1.3); GFR - MDRD 53 (>89); GLUCOSE 97 mg/dL (74-104); HDL CHOLESTEROL 36 mg/dL; LDL CHOLESTEROL,CALCULATED 62 mg/dL; LDL/HDL RATIO 1.7 (<3.6); POTASSIUM 4.9 mmol/L (3.5-4.5); SODIUM 139 mmol/L (135-145); TOTAL PROTEIN 7.2 g/dL (6.4-8.9); TRIGLYCERIDES 79 mg/dL (48-352); VLDL CHOLESTEROL 16 mg/dL
== END 2023-12-18 08:04 | disposition home or self-care (01) ==
LOC: LAB.N 08:03
PROVIDERS: ATTEND Internal Medicine
DX: I10 Essential (primary) hypertension (principal); E78.5 Hyperlipidemia, unspecified
CPT/HCPCS: 36415; 80053; 80061; 83721; 85025

== ENCOUNTER 2024-02-07 11:43 | Outpatient (CLI) | payer MEDICARE ==
--- NOTE | 2024-02-07 16:33 | Ultrasound Report ---
PROCEDURE: Extremity Soft Tissue Limited INDICATIONS: MASS TECHNIQUE: Real-time scanning was performed of the right forearm, with image documentation. COMPARISON: None. FINDINGS: There is a focus of heterogeneous echogenicity immediately below the skin surface at the a thompson of palpable concern measuring 1.2 x 0.3 x 0.4 cm. IMPRESSION: Superficial focus of heterogeneous echogenicity as above. Etiology is indeterminate base s at that this exam. This could represent a complex cyst or potentially partially thrombosed superfic ial vein. Reviewed by: Marleen Miller MD on 02/07/2024 4:32 PM PDT Approved by: Marleen Miller MD on 02/07/2024 4:32 PM PDT Station ID: [id number]
== END 2024-02-07 11:44 | disposition home or self-care (01) ==
LOC: DI 11:43
PROVIDERS: ATTEND Internal Medicine
DX: R22.31 Localized swelling, mass and lump, right upper limb (principal)

== ENCOUNTER 2024-06-19 10:07 | Outpatient (CLI) | payer OTHER, MEDICARE | END 2024-06-19 10:08 | disposition EMS.NT | LOC: EMS 10:07 | DX: Z04.1 Encounter for examination and observation following transport accident (principal) ==